=== PATIENT | male | born 1970 | race Caucasian/White ===

== ENCOUNTER 2018-11-23 15:54 | Emergency (ER) | payer SELFPAY ==
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
[2018-11-23] MEDS ORDERED: LORazepam 1 MG Tab PO ONE (17:17)
[2018-11-23] MEDS ORDERED: Nicotine 21 MG/24 Hr Patch TRDERM ONE (19:31)
== END 2018-11-23 19:50 ==
LOC: JP.ED 15:54
DX: F15.20 Other stimulant dependence, uncomplicated (principal)
CPT/HCPCS: 36415; 80053; 80305; 81001; 85025; 99283; 99284; A9270; G0480

== ENCOUNTER 2019-09-30 07:04 | Day surgery (SDC) | payer MEDICAID, OTHER ==
[~2019-09-30 07:04] MED LIST: Dextrose 5%-Lactated Ringers 1,000 ML IV SCH; Midazolam 1 MG/ML 2 ML SDV ONE; Propofol 200 MG/20 ML SDV ONE; fentaNYL 100 MCG/2 ML SDV ONE
[2019-09-30] MEDS ORDERED: Lidocaine 1% with EPINEPHrine 1:100,000 50 ML MDV ONE (07:18)
[2019-09-30] MEDS ORDERED: Bupivacaine 0.5% 50 ML MDV ONE (07:18)
[2019-09-30] MEDS ORDERED: Acetaminophen 500 MG Tab PO ONE (07:30)
[2019-09-30] MEDS ORDERED: Dextrose 5%-Lactated Ringers 1,000 ML IV SCH (07:30)
[2019-09-30] MEDS ORDERED: ceFAZolin 2 GM in Premix Bag 1 BAG IV ONE (07:45)
[2019-09-30] MEDS ORDERED: ceFAZolin 2 GM in Sodium Chloride 0.9% 50 ML IV ONE (08:15)
[2019-09-30] MEDS ORDERED: Midazolam 1 MG/ML 2 ML SDV ONE (10:39)
[2019-09-30] MEDS ORDERED: Ketorolac 60 MG/2 ML SDV ONE (10:43)
[2019-09-30] MEDS ORDERED: Propofol 200 MG/20 ML SDV ONE ×3 (10:48→11:20)
[2019-09-30] MEDS ORDERED: Lactated Ringers 1,000 ML ONE (11:36)
--- NOTE | 2019-10-07 15:32 | OR ---
DATE OF PROCEDURE: 09/30/2019 SURGEON: Leland Abdullahi MD PREOPERATIVE DIAGNOSIS: Incarcerated left inguinal hernia. POSTOPERATIVE DIAGNOSES: 1. Incarcerated left inguinal hernia. 2. Left ilioinguinal nerve and genital branch of the genitofemoral nerve at risk for scar entrapment. PROCEDURE PERFORMED: Left inguinal exploration with: 1. Repair of incarcerated left inguinal hernia with mesh (62173). 2. Excision of portion of left ilioinguinal nerve (34234). 3. Division of portion of genital branch of genitofemoral nerve (14214). ANESTHESIA: Local plus IV sedation. INDICATION FOR PROCEDURE: This is a 48-year-old male presenting with progressively symptomatic left inguinal hernia, this was not entirely reducible on preoperative evaluation. Plan is to proceed with a left inguinal hernia repair with mesh plug technique. Potential risks of the procedure including bleeding, infection, injury to underlying viscera, problems with mesh becoming infected or hernia recurring were all reviewed. That we will often divide the ilioinguinal nerve and other nerves that might be in the field of flat portion of the mesh plug system to avoid chronic neuropathic pain at the expense of subcutaneous anesthesia was reviewed with the patient, and he wishes to proceed. DETAILS OF PROCEDURE: The patient was taken to the operating room and placed in a supine position. After IV sedation was administered, the abdomen and groin areas were prepped and draped. Left inguinal area was then anesthetized with 1% lidocaine mixed with Marcaine and a standard left inguinal incision was made and carried down through the skin and subcutaneous tissue and through the external oblique aponeurosis. Subaponeurotic flaps were then raised superiorly and inferiorly. The ilioinguinal nerve was initially seen to be coursing over the course of the inguinal floor. This was divided medially and excised to a point in the far lateral aspect of the incision. The cord structures were mobilized upward, and the patient was noted to have an indirect type hernia. The cord structures were then dissected free. The genital branch of the genitofemoral nerve was identified and this was felt to be likely to lie up against the flat portion of the mesh-plug system where it encircled the cord structures, and we therefore likewise excised at a point towards posterior to the inguinal ring. Transversalis fascia over the hernia was then divided and this allowed dissection behind the area underlying the conjoint tendon medially, laterally, and superiorly and out of the level of Stefano's ligament. An extra large mesh plug was placed into the defect and affixed to Stefano's ligament with some titanium tacking screws to the underside of the conjoint tendon medially, superiorly, and laterally with horizontal mattress sutures of 0 Vicryl stitch. The flat portion of the mesh-plug system was then placed across the inguinal floor and sutured lateral to the cord structures with 3-0 Vicryl stitch and affixed to pubic tubercle with a titanium tacking screw. The external oblique aponeurosis was then approximated with 3-0 Vicryl stitch, as was the subcutaneous tissue. The skin closed with 4-0 Vicryl subcuticular stitch, dressing was applied. The patient was taken to the recovery room in satisfactory condition. There were no evident complications. The patient will be discharged home. In addition to the local anesthetic, he received IM Toradol in the operative room. With the patient being treated for combined opiate, methamphetamine, and alcohol use disorder, we will avoid using any narcotics to the extent we are able to in this case. We will be sending him home with Tylenol 1 g q.i.d. x5 days and p.r.n., then Toradol 10 mg p.o. q.i.d. x5 days more or less scheduled, and while he is on the Toradol instructed to stay off Naprosyn, but then resume Naprosyn following the completion of the Toradol. I will see the patient back on 10/13/2019. Leland Abdullahi MD /[id number]
== END 2019-09-30 13:13 | disposition home or self-care (01) ==
LOC: JP.SDS 07:04
PROVIDERS: ATTEND Surgery
DX: K40.30 Unilateral inguinal hernia, with obstruction, without gangrene, not specified as recurrent (principal); G58.8 Other specified mononeuropathies; I10 Essential (primary) hypertension; K21.9 Gastro-esophageal reflux disease without esophagitis; F17.200 Nicotine dependence, unspecified, uncomplicated
CPT/HCPCS: 49507; 64784; 88302; A9270; C1713; C1781; J0690; J1885; J2250; J2704; J3010; J3490; J7050; J7120; J7121

== ENCOUNTER 2020-11-07 07:27 | Day surgery (SDC) | payer MEDICAID ==
[~2020-11-07 07:27] MED LIST changes: +Bupivacaine 0.5% 50 ML MDV ONE; -Dextrose 5%-Lactated Ringers 1,000 ML IV SCH; +Lidocaine 1% with EPINEPHrine 1:100,000 50 ML MDV ONE; -Midazolam 1 MG/ML 2 ML SDV ONE; -Propofol 200 MG/20 ML SDV ONE; -fentaNYL 100 MCG/2 ML SDV ONE
[2020-11-07] MEDS ORDERED: Acetaminophen 500 MG Tab PO ONE (07:30)
[2020-11-07] MEDS ORDERED: ceFAZolin 2 GM in Premix Bag 1 BAG IV ONE (08:00)
[2020-11-07] MEDS ORDERED: Dextrose 5%-Lactated Ringers 1,000 ML IV SCH (08:00)
[2020-11-07] MEDS ORDERED: fentaNYL 100 MCG/2 ML SDV ONE ×2 (08:43→09:07)
[2020-11-07] MEDS ORDERED: Propofol 200 MG/20 ML SDV ONE ×4 (08:43→09:45)
[2020-11-07] MEDS ORDERED: Midazolam 1 MG/ML 2 ML SDV ONE ×2 (08:43→08:44)
[2020-11-07] MEDS ORDERED: Ketorolac 60 MG/2 ML SDV ONE (09:15)
--- NOTE | 2020-11-12 17:05 | OR ---
DATE OF PROCEDURE: 11/07/2020 SURGEON: Leland Abdullahi MD PREOPERATIVE DIAGNOSIS: Recurrent left inguinal hernia. POSTOPERATIVE DIAGNOSES: 1. Small recurrent direct left inguinal hernia. 2. Symptomatic varicocele. OPERATIVE PROCEDURE: Left inguinal exploration with: 1. Repair of recurrent direct inguinal hernia (43699). 2. Varicocelectomy (95000). ANESTHESIA: Local plus IV sedation. INDICATIONS FOR PROCEDURE: The patient presents with clinically evident recurrence of a previously repaired left inguinal hernia. Plan is to proceed with left inguinal exploration with repair of the hernia with and without mesh. Potential risks of the procedure including bleeding, infection, chronic pain following the procedure, possible recurrence of the hernia once again were all reviewed, and the patient wishes to proceed. DETAILS OF PROCEDURE: The patient was taken to the operating room and placed in supine position. IV sedation was administered, after which the abdomen and groin areas were prepped and draped, and anesthetized with 1% lidocaine mixed with Marcaine over the left inguinal area. Previous left inguinal incision was then reused and carried down through the skin and subcutaneous tissue and through the external oblique aponeurosis. Subaponeurotic flaps were then raised superiorly and inferiorly. The patient was noted to have some quite dilated veins within the cord structures and this was felt to be contributing to the patient's sense of bogginess and discomfort based on the preop clinical examination. The dilated veins were then ligated proximally at the level of the internal ring with suture ligatures of 3-0 Vicryl stitch. Review of the inguinal floor at this point showed a largely intact previous hernia repair. There is a small direct recurrence in the far medial aspect of the inguinal floor. This was reduced with some cautery dissection. This was too small to immediately place a mesh plug in that area. Given this, this was repaired with suture of the conjoint tendon to the shelving portion of the inguinal ligament getting directly medially and then extending out to the level of the internal ring to provide some additional support to that area with no further problems noted. The external oblique aponeurosis was approximated with some 3-0 Vicryl stitch as was the Ivy's fascia, and the skin closed with 4-0 Vicryl subcuticular stitch. Dressing was applied. The patient was taken to the recovery room in satisfactory condition. Physician school health assistant, Amita Barrera, played an essential role in assisting in this case helping to position the patient, retract structures as needed, as well as suturing and cutting sutures when indicated. Her presence improved patient's safety and decreased operative time. Leland Abdullahi MD /[id number]
== END 2020-11-07 12:00 | disposition home or self-care (01) ==
LOC: JP.SDS 07:27
PROVIDERS: ATTEND Surgery
DX: I86.1 Scrotal varices (principal); K40.31 Unilateral inguinal hernia, with obstruction, without gangrene, recurrent; F17.200 Nicotine dependence, unspecified, uncomplicated; E66.9 Obesity, unspecified; K21.9 Gastro-esophageal reflux disease without esophagitis; Z68.32 Body mass index [BMI] 32.0-32.9, adult
CPT/HCPCS: 55540; 96365; 96366; A9270; J1885; J2250; J2704; J3010; J3490; J7121

== ENCOUNTER 2021-04-20 10:22 | Day surgery (SDC) | payer MEDICAID ==
[2021-04-20] MEDS ORDERED: Sodium Chloride 0.9% 1,000 ML IV SCH (11:00)
[2021-04-20] MEDS ORDERED: fentaNYL 100 MCG/2 ML SDV ONE (11:11)
[2021-04-20] MEDS ORDERED: Propofol 200 MG/20 ML SDV ONE (11:11)
[2021-04-20] MEDS ORDERED: Midazolam 1 MG/ML 2 ML SDV ONE (11:11)
--- NOTE | 2021-04-21 10:37 | OR ---
DATE OF PROCEDURE: 04/20/2021 SURGEON: Joe Judd MD PROCEDURES: 1. Esophagogastroduodenoscopy. 2. Colonoscopy. FINDINGS: 1. No abnormalities noted in EGD. 2. Poor colon prep due to large amount of stool. COMPLICATION: None. HEALTH INFORMATION TECHNICIAN: None. PREOPERATIVE DIAGNOSIS: Abdominal pain. POSTOPERATIVE DIAGNOSIS: Abdominal pain. DESCRIPTION OF PROCEDURE: The scope was introduced and advanced atraumatically into the second part of the duodenum. No evidence of duodenitis or ulceration. The GE junction was normal. There was no evidence of gastritis or abnormality. Esophagus was normal. I had digital rectal exam performed next. The colonoscope was introduced and immediately a large amount of solid stool precluding any further advancement. Therefore, the procedure was terminated in the sigmoid colon. The patient tolerated the procedure well. Joe Judd MD /[id number]
== END 2021-04-20 14:43 | disposition home or self-care (01) ==
LOC: JP.SDS 10:22
PROVIDERS: ATTEND Surgery
DX: R10.32 Left lower quadrant pain (principal); K21.9 Gastro-esophageal reflux disease without esophagitis
CPT/HCPCS: 43235; 45330; J2250; J2704; J3010; J7030